=== PATIENT | female | born 1990 | race Two or more races ===

== ENCOUNTER 2019-09-28 22:23 | Emergency (ER) | payer MEDICAID, OTHER ==
[~2019-09-28] VITALS: Ht 167.6 cm; Wt 72.7 kg
[2019-09-28 23:24] LABS: BASOPHILS % (AUTO) 0.8 % (0.0-2.0); EOSINOPHILS % (AUTO) 1.5 % (1.0-6.0); LYMPHOCYTES # (AUTO) 2.2 K/uL (1.0-4.8); LYMPHOCYTES % (AUTO) 30.8 % (22.0-44.0); MEAN CORPUSCULAR HEMOGLOBIN 33.3 pg (26.0-34.0); MEAN CORPUSCULAR HGB CONC 33.3 G/dL (31.0-37.0); MEAN CORPUSCULAR VOLUME 100 fL (80-100); MONOCYTES # (AUTO) 0.4 K/uL (0.1-1.0); MONOCYTES % (AUTO) 5.1 % (2.0-9.0); NEUTROPHILS # (AUTO) 4.4 K/uL (1.8-7.7); NEUTROPHILS % (AUTO) 61.8 % (40.0-70.0); PLATELET COUNT (AUTO) 277 K/uL (150-450); RED BLOOD CELL COUNT(AUTO) 3.59 MIL/uL (4.00-5.20); RED CELL DISTRIBUTION WIDTH 12.5 % (11.5-14.5)
[2019-09-28 23:37] LABS: ANION GAP 5 mmol/L (8-16); CALCIUM, TOTAL 8.9 mg/dL (8.8-10.5); CARBON DIOXIDE 30 mmol/L (22-29); CHLORIDE 105 mmol/L (98-107); CREATININE 0.86 mg/dL (0.60-1.30); GLOMERULAR FILTR. RATE CALC > 60 mL/min (>60); GLUCOSE,RANDOM 114 mg/dL (70-110); POTASSIUM 3.9 mmol/L (3.5-5.1); SODIUM SERUM 140 mmol/L (136-145); UREA NITROGEN, BLOOD 18 mg/dL (7-18)
[2019-09-28 23:50] LABS: ALANINE AMINOTRANSFERASE 19 U/L (12-78); ALBUMIN 3.7 g/dL (3.4-5.0); ALKALINE PHOSPHATASE 47 U/L (46-116); ASPARTATE AMINOTRANSFERASE 6 U/L (15-37); BILIRUBIN,TOTAL 0.1 mg/dL (0.1-1.0); HCG,QUANTITATIVE < 1 mIU/mL (0-6); TOTAL PROTEIN, SERUM 7.2 g/dL (6.4-8.2)
[2019-09-29 01:53] VITALS: BP 108/66
== END 2019-09-29 02:39 | disposition home or self-care (01) ==
LOC: EMS 22:27
DX: S00.83XA Contusion of other part of head, initial encounter (principal); R56.9 Unspecified convulsions; F20.9 Schizophrenia, unspecified; X58.XXXA Exposure to other specified factors, initial encounter; Y93.89 Activity, other specified; Y92.89 Other specified places as the place of occurrence of the external cause; Y99.8 Other external cause status
CPT/HCPCS: 70450

== ENCOUNTER 2025-05-31 20:27 | Inpatient (IN) | payer MEDICAID, OTHER ==
[~2025-05-31] VITALS: Ht 160 cm; Wt 78.0 kg
[2025-05-31 22:55] LABS: PLATELET COUNT (AUTO) 432 K/uL (150-450); RED BLOOD CELL COUNT(AUTO) 4.09 MIL/uL (4.00-5.20); RED CELL DISTRIBUTION WIDTH 13.9 % (11.5-14.5); WHITE BLOOD COUNT (AUTO) 7.7 K/uL (4.5-11.0)
[2025-05-31 22:55] LABS: COVID AG,FIA SOURCE NASAL SWAB
[2025-05-31 22:58] VITALS: O2SAT 98
[2025-05-31 23:15] LABS: CALCIUM, TOTAL 9.1 mg/dL (8.8-10.5); CREATININE 0.74 mg/dL (0.60-1.30); GLOMERULAR FILTR. RATE CALC > 60 mL/min (>60); GLUCOSE,RANDOM 94 mg/dL (70-110); SODIUM SERUM 139 mmol/L (136-145); UREA NITROGEN, BLOOD 11 mg/dL (7-18)
[2025-05-31 23:26] LABS: SARS-COV2 (COVID) ANTIGEN,FIA Negative (Negative)
[2025-06-01] MEDS ORDERED: ZOLPIDEM TARTRATE 10 MG TABLET PO PRN (01:00)
[2025-06-01] MEDS: POTASSIUM CHLORIDE 20 MEQ ER TABLET PO ONE (01:20)
[2025-06-01 04:40] VITALS: BP 120/74; PULSE 74; RESP 18; TEMP 97.2; O2SAT 98
[2025-06-01 09:02] VITALS: BP 91/75; PULSE 80; RESP 16; TEMP 96.9; O2SAT 100
[2025-06-01] MEDS ORDERED: ONDANSETRON 4 MG TABLET PO PRN (09:30)
[2025-06-01] MEDS ORDERED: MAG HYDROX/ALUMINUM HYD/SIMETH ES 30 ML SUSPENSION UDCUP PO PRN (09:30)
[2025-06-01] MEDS ORDERED: NICOTINE 14 MG/24 HOUR PATCH TD PRN (09:30)
[2025-06-01] MEDS ORDERED: MAGNESIUM HYDROXIDE SUSPENSION 30 ML UDCUP PO PRN (09:30)
[2025-06-01] MEDS ORDERED: LOPERAMIDE HCL 2 MG CAPSULE PO PRN (09:30)
[2025-06-01] MEDS ORDERED: DOCUSATE SODIUM 100 MG CAPSULE PO PRN (09:30)
[2025-06-01] MEDS ORDERED: PETROLATUM,WHITE 28 GM JELLY TP PRN (09:30)
[2025-06-01] MEDS ORDERED: ALBUTEROL SULFATE HFA 90 MCG/PUFF 8 GM INHALER IH PRN (09:30)
[2025-06-01] MEDS ORDERED: ACETAMINOPHEN 325 MG TABLET PO PRN (09:30)
[2025-06-01] MEDS ORDERED: GuaiFENesin/D-METHORPHAN [SUGAR-FREE] 200-20MG/10 ML SYRUP UDCUP PO PRN (09:30)
[2025-06-01 20:15] VITALS: BP 101/62; PULSE 74; RESP 18; TEMP 98; O2SAT 74
[2025-06-02 07:20] LABS: PLATELET COUNT (AUTO) 354 K/uL (150-450); RED BLOOD CELL COUNT(AUTO) 3.79 MIL/uL (4.00-5.20); RED CELL DISTRIBUTION WIDTH 13.9 % (11.5-14.5); WHITE BLOOD COUNT (AUTO) 5.3 K/uL (4.5-11.0)
[2025-06-02 07:56] LABS: ASPARTATE AMINOTRANSFERASE 14 U/L (15-37); CALCIUM, TOTAL 8.7 mg/dL (8.8-10.5); CHOL/HDL RATIO 3.7 (3.9-5.7); CREATININE 0.59 mg/dL (0.60-1.30); GLOMERULAR FILTR. RATE CALC > 60 mL/min (>60); GLUCOSE,RANDOM 84 mg/dL (70-110); LDL CHOL (CALC.) 113 mg/dL (0-130); SODIUM SERUM 139 mmol/L (136-145); TOTAL PROTEIN, SERUM 6.3 g/dL (6.4-8.2); UREA NITROGEN, BLOOD 13 mg/dL (7-18)
[2025-06-02 15:07] VITALS: BP 99/62; PULSE 90; RESP 18; TEMP 97.4; O2SAT 100
[2025-06-02 20:00] VITALS: BP 90/72; PULSE 80; RESP 18; TEMP 98.8; O2SAT 100
[2025-06-03 03:34] LABS: APPEARANCE,URINE CLEAR (CLEAR); GLUCOSE, URINE (UA) NEGATIVE (NEGATIVE); LEUKOCYTE ESTERASE ,URINE SMALL (NEGATIVE); NITRATE,URINE NEGATIVE (NEGATIVE); OCCULT BLOOD,URINE NEGATIVE (NEGATIVE); PH,URINE DRUG SCREEN 6.0 (5.0-8.0); SPECIFIC GRAVITIY, URINE 1.027 (1.003-1.030)
[2025-06-03 03:40] LABS: ALCOHOL, URINE DRUG SCREEN NEGATIVE (NEGATIVE); AMPHET/METH SCREEN,URINE NEGATIVE (NEGATIVE); BARBITURATE SCREEN, URINE NEGATIVE (NEGATIVE); CANNABINOID SCREEN,URINE NEGATIVE (NEGATIVE); COCAINE SCREEN,URINE NEGATIVE (NEGATIVE); METHADONE SCREEN, URINE NEGATIVE (NEGATIVE)
[2025-06-03 03:43] LABS: SQUAMOUS EPITHELIAL CELL,UR Few /LPF (None Seen)
[2025-06-03 09:03] VITALS: BP 99/67; PULSE 98; RESP 18; TEMP 97.7; O2SAT 98
[2025-06-03 20:22] VITALS: BP 103/68; PULSE 96; RESP 19; TEMP 97.5; O2SAT 96
[2025-06-04 09:06] VITALS: BP 100/82; PULSE 68; RESP 18; TEMP 98.4; O2SAT 96
[2025-06-04 20:02] VITALS: BP 100/58; PULSE 83; RESP 16; TEMP 97.8; O2SAT 99
[2025-06-05 11:07] VITALS: BP 106/54; PULSE 93; RESP 18; TEMP 98; O2SAT 96
[2025-06-06 10:14] VITALS: BP 103/69; PULSE 80; RESP 18; TEMP 97.7; O2SAT 99
[2025-06-06 21:24] VITALS: BP 102/65; PULSE 103; RESP 19; TEMP 98.8; O2SAT 99
[2025-06-07 08:40] VITALS: BP 100/73; PULSE 83; RESP 18; TEMP 97.8; O2SAT 99
[2025-06-07 21:04] VITALS: RESP 18; O2SAT 99
[2025-06-08 11:23] VITALS: BP 111/68; PULSE 81; RESP 17; TEMP 98.1; O2SAT 97
[2025-06-08 21:02] VITALS: BP 97/60; PULSE 81; RESP 18; TEMP 98.2; O2SAT 98
[2025-06-09 10:26] VITALS: BP 129/74; PULSE 72; RESP 18; TEMP 97; O2SAT 96
[2025-06-09 20:43] VITALS: BP 101/65; PULSE 92; RESP 18; TEMP 98.2; O2SAT 99
[2025-06-10 09:30] VITALS: BP 129/73; PULSE 81; RESP 18; TEMP 97.3; O2SAT 100
[2025-06-10 21:11] VITALS: BP 114/73; PULSE 71; RESP 18; TEMP 97.6; O2SAT 100
[2025-06-11 09:15] VITALS: BP 106/64; PULSE 84; RESP 18; TEMP 98; O2SAT 100
[2025-06-11 21:05] VITALS: BP 102/61; PULSE 75; RESP 19; TEMP 97.4; O2SAT 100
[2025-06-12 10:08] VITALS: BP 90/60; PULSE 71; RESP 17; TEMP 98.4; O2SAT 97
[2025-06-12 21:24] VITALS: BP 102/68; PULSE 92; RESP 18; O2SAT 99
[2025-06-13 13:13] VITALS: BP 99/68; PULSE 87; RESP 18; TEMP 97.5; O2SAT 98
[2025-06-13 21:53] VITALS: BP 104/61; PULSE 85; RESP 18; TEMP 97.2; O2SAT 100
[2025-06-14 11:21] VITALS: BP 103/81; PULSE 79; RESP 18; TEMP 97.3
[2025-06-14 21:39] VITALS: BP 125/106; PULSE 89; RESP 18; TEMP 98; O2SAT 100
[2025-06-15 18:22] VITALS: BP 102/70; PULSE 71; RESP 17; TEMP 97.8; O2SAT 100
[2025-06-15 22:36] VITALS: BP 95/65; PULSE 85; RESP 18; TEMP 97.8; O2SAT 98
[2025-06-16 04:08] VITALS: BP 119/67; PULSE 81; RESP 18; TEMP 97.6
[2025-06-16] MEDS: IBUPROFEN 400 MG TABLET PO PRN (04:08)
[2025-06-16 05:08] VITALS: RESP 18
[2025-06-16] MEDS ORDERED: RISP-32 PO (10:58)
[2025-06-16 15:37] VITALS: BP 104/66; PULSE 79; RESP 16; TEMP 97.3; O2SAT 100
== END 2025-06-16 14:20 | disposition home or self-care (01) | DRG 750 ==
LOC: EMS 20:27 → UNDOADMIN 06-01 00:56 → EDH 06-01 00:56 → 3EI 06-01 03:37
PROVIDERS: ADMIT Psychiatry & Neurology Psychiatry; ATTEND Psychiatry & Neurology Psychiatry
PROC: GZHZZZZ Group Psychotherapy (ICD-10-PCS; principal; 2025-06-01)
PROC: GZ52ZZZ Individual Psychotherapy, Cognitive (ICD-10-PCS; 2025-06-01)
DX: F20.0 Paranoid schizophrenia (principal); E78.5 Hyperlipidemia, unspecified; E87.6 Hypokalemia; Z20.822 Contact with and (suspected) exposure to COVID-19; F41.9 Anxiety disorder, unspecified; G47.00 Insomnia, unspecified; Z79.899 Other long term (current) drug therapy
CPT/HCPCS: 80048; 80053; 80061; 80307; 81001; 83036; 84436; 84443; 84703; 85025; 99285; G0480